=== PATIENT | female | born 1990 | race Hispanic/Latino ===

== ENCOUNTER 2024-10-09 08:25 | Emergency (ER) | payer OTHER, SELFPAY ==
[2024-10-09 08:32] VITALS: BP 107/70
--- NOTE | 2024-10-09 09:13 | ED.GENMED ---
History of Present Illness
General
Chief Complaint: Dizziness
Source: patient
Exam Limitations: none
Time Seen by Provider: 10/09/24 08:57
History of Present Illness
History of Present Illness:
34-year-old female complaining of dizziness x 2 days. Got over flulike symptoms a week ago. Has had slight residual cough. No chest pain no pleuritic pain no headache no other neurologic symptoms. Initially describes the dizziness as feeling
like she might pass out when she stood up and walk but then described it more as disequilibrium with vertigo. No ringing in the ears. No neck pain. No trauma.
Past History
Past History
ED Past Medical History: Psychiatric
ED Past Surgical History: and Gynecological (Cyst removed from left breast)
Review of Systems
Review of Systems
All Other Systems: Not applicable
Constitutional: Denies fever or chills
Cardiac: Denies chest pain or syncope
ABD/GI: Reports no symptoms
Phy Exam
Physical Exam
Physical Exam:
GENERAL: Alert and oriented in no apparent distress
EYE: Orbits normal. Extraocular muscles intact. No nystagmus
NECK: Supple, no carotid bruit
ENT: Pharynx without erythema TMs clear
CARDIAC: Regular rate and rhythm without any obvious murmurs.
LUNGS: Clear breath sounds,normal
ABDOMEN: Soft, without focal tenderness or distention
NEUROLOGICAL: Alert and oriented , speech normal. Cranial nerves II through XII intact. [id number] normal. Gait slightly wide-based and mildly ataxic.
SKIN: Warm and dry, no rash or lesion, no discoloration, skin intact.
MUSCULOSKELETAL: No edema,no deformity.Good color
PSYCH: Normal and appropriate interaction.
Course
Orders/Labs/Results
Orders:
Orders
10/09/24 09:10
EKG [Electrocardiogram (*1)] Urgent
Reason for Study: Vertigo / Dizzy
CT Head W/o Iv Contrast Urgent
Comment:
Reason For Exam: Disequilibrium
CT Neck Angio W/wo Iv Contrast Urgent
Comment:
Reason For Exam: Disequilibrium
Cardiac Monitoring- Treatment ONCE
IV Insert/Care/Rem.- Treatment PRN
0.9% Sodium Chloride 1000 ml [Nss] 1,000 ml IV BOLUS
Meclizine [Antivert] 25 mg PO NOW STA
10/09/24 09:11
EKG- Treatment ONCE
Test Result ONCE
CXR2 [CR Chest - 2 Views ] Urgent
Comment:
Reason For Exam: Cough/short of breath
10/09/24 09:49
Basic Metabolic Panel Urgent
Beta Hcg Serum Qualitative Screen [HCG, Serum Qualitative Screen] Urgent
Complete Blood Count/With Diff Urgent
10/09/24 12:46
Amoxicillin 875 mg/Clav 125 mg [Augmentin 875 mg/125 mg] 1 tablet PO NOW STA
Abnormal Lab Results
10/09/24
09:49
Hgb 11.5 L g/dL
(12.0-16.0)
Hct 36.1 L %
(37.0-47.0)
MCV 79.0 L fL
(81.0-99.0)
MCH 25.2 L pg
(27.0-31.0)
MCHC 31.9 L g/dL
(33.0-37.0)
Abs Immat Gran (auto) 0.1 H 10^3/uL
(0-0.05)
Immature Gran % 0.6 H %
(0-0.5)
10/09/24 09:49
10/09/24 09:49
Vital Signs
Initial and Last Documented VS:
Initial Vital Signs
Temp Pulse Resp BP Pulse Ox
98.1 F 96 16 107/70 98
10/09/24 08:32 10/09/24 08:32 10/09/24 08:32 10/09/24 08:32 10/09/24 08:32
Last Documented Vital Signs
Temp Pulse Resp BP Pulse Ox
98.1 F 74 18 110/61 99
10/09/24 08:32 10/09/24 13:19 10/09/24 13:19 10/09/24 13:19 10/09/24 13:19
MDM/Problems Addressed
Differential Diagnosis Includes:
Most suspicious of a inner ear labyrinth Tucker. Neurologically stable. No risk factors for more serious etiology. No neck pain. No carotid bruit. No trauma. However with prolonged symptoms we will get a CT angio of the neck to rule out
dissection or thrombus. Symptomatic treatment fluids. Chest x-ray for cough.
*Critical Care Note
Total Time (30-74mins, 75-104mins- exclusive of procedures): Not Applicable
Data Reviewed
Review of Other/Old Records Reveals: Labs, Records and Testing
Update Note
Update Note:
Patient neurologically stable. Workup unremarkable. Does have acute sinusitis by CT. Given that this could cause in her ear issues will cover with antibiotics to follow-up
ED Attending Note
-
Portions of this chart may have been created with voice recognition software.� Occasional wrong word or��sound alike� substitutions may have occurred due to the inherent limitations of voice recognition software.
Discharge Plan
Departure
Patient Disposition: Home (Routine Discharge)
Date of Disposition: 10/09/24
Time of Disposition: 12:48
Patient with high blood pressure during this ER visit?: No
Discharge Problem:
Dizziness, Maxillary sinusitis
Instructions: Sinusitis in adults - ED discharge instructions, Dizziness
Prescriptions:
New
amoxicillin-pot clavulanate 875-125 mg tablet
1 tab PO BID Qty: 20 0RF
meclizine [Antivert] 25 mg tablet,chewable
25 mg PO Q8HPRN PRN (Reason: nausea or vertigo) Qty: 14 0RF
No Action
oxycodone-acetaminophen 5-325 mg Tablet
1 tab PO Q4HPRN PRN (Reason: moderate pain) Qty: 10 0RF
ibuprofen 600 mg Tablet
600 mg PO Q6HPRN PRN (Reason: cramps) Qty: 30 0RF
sennosides-docusate sodium [Senna Plus] 8.6-50 mg Tablet
1 tab PO DAILYPRN PRN (Reason: constipation) Qty: 30 0RF
acetaminophen 325 mg Tablet
650 mg PO Q4HPRN PRN (Reason: mild pain) Qty: 30 0RF
sertraline [Zoloft] 100 mg Tablet
100 mg PO DAILY Qty: 30 0RF
vit-iron fum-folic ac 1 EACH tablet
1 ea PO DAILY Qty: 30 0RF
Referrals:
Coral Serrano CRNP [Family Provider] - Follow up in 2-3 days
Interventions
Interventions:
*Risk Screen - Suicide Last Done: 10/09/24 08:32
*General Assessment Last Done: 10/09/24 08:32
*Neglect/Abuse Screening Last Done: 10/09/24 08:32
ED- Fall Risk Assessment Last Done: 10/09/24 09:53
*ED COVID-19 Vaccine History Last Done: 10/09/24 09:41
*Nursing Disposition Last Done: 10/09/24 13:19
ED- Neurological Assessment Last Done: 10/09/24 09:53
ED- Cardiac Assessment Last Done: 10/09/24 09:53
ED Swallowing Screen Last Done: 10/09/24 09:45
Discharge Date and Time
Discharge Date/Time: 10/09/24 13:20
Print Language: TURKISH
[2024-10-09 09:41] VITALS: BMI 30.2
[2024-10-09 09:46] VITALS: BP 95/70
[2024-10-09] MEDS: ANTIVERT 25 MG PO (09:46)
[2024-10-09] MEDS: NSS 1000 IV (09:48)
[2024-10-09 09:57] LABS: % Basophils 0.5 % (0-2); % Eosinophils 1.1 % (0-6); % Immature Granulocytes 0.6 % (0-0.5); % Lymphocytes 24.2 % (20.5-51.1); % Monocytes 6.1 % (1.7-9.3); % Neutrophils 67.5 % (42.2-75.2); Absolute Eosinophils 0.1 10^3/uL (0-0.7); Absolute Immature Granulocytes 0.1 10^3/uL (0-0.05); Absolute Lymphocytes 2.1 10^3/uL (1.2-3.4); Absolute Monocytes 0.5 10^3/uL (0.1-0.6); Hematocrit 36.1 % (37.0-47.0); Hemoglobin 11.5 g/dL (12.0-16.0); Mean Corp Hgb Conc. 31.9 g/dL (33.0-37.0); Mean Corpuscular Hgb 25.2 pg (27.0-31.0); Mean Platelet Volume 8.9 fL (7.4-10.4); Nucleated Red Blood Cells % 0 %; Platelet Count 288 10^3/uL (130-400); Red Blood Cell Count 4.57 10^6/uL (4.20-5.40); White Blood Cell Count 8.8 10^3/uL (4.8-10.8)
[2024-10-09 10:00] VITALS: BP 98/67
[2024-10-09 10:29] LABS: HCG, Serum Qualitative Screen Negative
[2024-10-09 10:30] LABS: Blood Urea Nitrogen 14 mg/dl (7-17); Calcium 8.6 mg/dl (8.4-10.2); Carbon Dioxide 29 mmol/L (22-30); Chloride 104 mmol/L (98-107); Estimated Creatinine Clearance 114 ml/min; Glucose 71 mg/dl (70-99); Sodium 139 mmol/L (135-145); eGFR > 60.00
[2024-10-09] MEDS: AUGMENTIN 875 MG/125 MG 1 TABLET PO (13:08)
[2024-10-09 13:19] VITALS: BP 110/61
== END 2024-10-09 13:20 | disposition home or self-care (01) ==
LOC: EMR 08:25
PROVIDERS: EMERGENCY PHYSICIAN Emergency Medicine; FAMILY PHYSICIAN Nurse Practitioner Adult Health
DX: J32.0 Chronic maxillary sinusitis (principal); R42 Dizziness and giddiness
CPT/HCPCS: 99285; 96360; 70450; 70498; 71046; 80048; 84703; 85025; 93005; Q9967